=== PATIENT | male | born 1995 | race Caucasian/White ===

== ENCOUNTER 2019-08-17 16:50 | Emergency (ER) | payer BC, OTHER ==
[2019-08-17 16:55] VITALS: BP 133/81; TEMP 98
[2019-08-17] MEDS ORDERED: DIPH,PERTUS(ACELL)TETVAC-LF 0.5 ML VIAL IM ONE (17:05)
[2019-08-17] MEDS ORDERED: LIDOCAINE 1% INJ 10MG/ML (20 ML MDV) SQ ONE (17:06)
--- NOTE | 2019-08-17 17:29 | ED ---
Wound/Laceration HPI - General Chief Complaint: Wound/Laceration Stated Complaint: LACERATION MIDDLE FINGER RT HAND Time Seen by Provider: 08/17/19 16:56 Source: patient, RN notes reviewed Mode of arrival: ambulatory Limitations: no limitations - History of Present Illness Initial Comments: 23-year-old male presents emergency from chief complaint of finger laceration. 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 Patient's unsure when his last tetanus was. Patient states he was seen in urgent care and he felt that he may have a deeper injury. Patient states that it's hard to move his finger. Patient offers no complaints. - Related Data Home Medications Medication Instructions Recorded Confirmed No Known Home Medications 04/05/14 07/31/15 Allergies Allergy/AdvReac Type Severity Reaction Status Date / Time No Known Allergies Allergy Verified 08/17/19 16:53 Review of Systems ROS Statement: Those systems with pertinent positive or pertinent negative responses have been documented in the HPI. ROS Other: All systems not noted in ROS Statement are negative. Past Medical History Past Medical History: No Reported History History of Any Multi-Drug Resistant Organisms: MRSA Date of last positivie culture/infection: arm MDRO Source:: 2010 Past Surgical History: No Surgical Hx Reported, Orthopedic Surgery Additional Past Surgical History / Comment(s): L hand Past Psychological History: No Psychological Hx Reported Smoking Status: Current every day smoker Past Alcohol Use History: None Reported Past Drug Use History: Marijuana General Exam Limitations: no limitations General appearance: alert, in no apparent distress Respiratory exam: Present: normal lung sounds bilaterally. Absent: respiratory distress, wheezes, rales, rhonchi, stridor Cardiovascular Exam: Present: regular rate, normal rhythm, normal heart sounds. Absent: systolic murmur, diastolic murmur, rubs, gallop, clicks Extremities exam: Present: other (Right hand third digit there is a 2 cm laceration that is semicircular nature this is over the proximal interphalangeal joint patient does have full range of motion though patient reports it feels weaker) Skin exam: Present: warm, dry, intact, normal color. Absent: rash Course Vital Signs 08/17/19 16:53 Temperature 98 F Pulse Rate 83 Respiratory 18 Rate Blood Pressure 133/81 O2 Sat by Pulse 98 Oximetry Procedures - Laceration Laceration #1 Consent Obtained: verbal consent Indication: laceration Site: hand (Right hand third digit) Size (cm): 2 Description: flap, irregular Depth: simple, single layer (No obvious tendon injury) Anesthetic Used: lidocaine 1%, without epi Amount (mls): 4 Pre-repair: wound explored, irrigated extensively, deep structures intact Type of Sutures: nylon Size of Sutures: 4-0 Number of Sutures: 4 Technique: simple, interrupted, running Patient Tolerated Procedure: well, no complications Additional Comments: Patient was splinted Medical Decision Making - Medical Decision Making Laceration was closed using 4 sutures, thoroughly irrigated., X-ray was obtained no acute abnormality. Patient able to go through full range of motion. Patient reports feeling weak. Patient was point a possible tendon injury. He is a recommended follow-up within 48 hours with surgeon. Patient does have a hand surgeon though will be provided current on-call surgeon patient's tetanus is updated Disposition Clinical Impression: Laceration of right middle finger Disposition: HOME SELF-CARE Condition: Stable Instructions (If sedation given, give patient instructions): Care For Your Stitches (ED), Finger Laceration (ED) Additional Instructions: Follow-up with your orthopedic surgeon for possible tendon laceration. Please return to the Emergency Department if symptoms worsen or any other concerns. Is patient prescribed a controlled substance at d/c from ED?: No Referrals: None,Stated [Primary Care Provider] - 1-2 days Gonzalo Jensen DO [Medical Doctor] - 1-2 days Time of Disposition: 17:29
--- NOTE | 2019-08-17 17:29 | XR ---
EXAMINATION TYPE: XR finger RT DATE OF EXAM: 08/17/2019 COMPARISON: NONE HISTORY: Laceration TECHNIQUE: 3 views FINDINGS: The middle finger appears intact. I see no evidence of a foreign body. There is no fracture . IMPRESSION: Negative exam. No fracture.
[2019-08-17] MEDS ORDERED: SODIUM CHLORIDE 0.9% IRRIG 1,000 ML BTL IRRIGATION ONE (17:34)
[2019-08-17 17:47] VITALS: PULSE 84; RESP 16
== END 2019-08-17 17:37 | disposition home or self-care (01) ==
LOC: EC 16:50
DX: S61.212A Laceration without foreign body of right middle finger without damage to nail, initial encounter (principal); F17.200 Nicotine dependence, unspecified, uncomplicated; Z23 Encounter for immunization; Z86.14 Personal history of Methicillin resistant Staphylococcus aureus infection; W26.8XXA Contact with other sharp object(s), not elsewhere classified, initial encounter; Y93.89 Activity, other specified; Y92.009 Unspecified place in unspecified non-institutional (private) residence as the place of occurrence of the external cause
CPT/HCPCS: 73140; 90715; 99283; 12001; 90471; J2001